=== PATIENT | female | born 1960 | race Caucasian/White ===

== ENCOUNTER 2017-10-01 13:52 | Emergency (ER) | payer BC, OTHER ==
[~2017-10-01] VITALS: Ht 165.1 cm; Wt 107.3 kg
[~2017-10-01 13:52] MED LIST: GLUCTAB PO; LISI-787 PO; LORA-741 PO; MULT-506 PO; SERT25TA PO
[2017-10-01 13:56] VITALS: TEMP 37.4; Ht 165.1 cm; Wt 107.3 kg
[2017-10-01 14:29] VITALS: O2SAT 97
[2017-10-01 14:43] LABS: BASO % 0.6 %; BASO ABS # 0.03 K/uL (0-0.2); EOS % 2.9 %; EOS ABS # 0.15 K/uL (0-0.5); HEMATOCRIT 33.8 % (37-47); HEMOGLOBIN 11.5 g/dL (12.0-16.0); IG# 0.01 K/uL (0.00-0.02); LYMPH % 23.1 %; LYMPH ABS # 1.19 K/uL (1.2-3.4); MEAN CELL VOLUME 88.3 fL (80-100); MEAN PLATELET VOLUME 9.4 fL (7.4-10.4); MONO % 8.2 %; MONO ABS # 0.42 K/uL (0.11-0.59); NEUT ABS # 3.35 K/uL (1.4-6.5); PLATELET COUNT 194 K/uL (130-400); RED CELL DISTRIBUTION WIDTH CV 12.7 % (11.5-14.5); RED CELL DISTRIBUTION WIDTH SD 40.9 fL (36.4-46.3); WHITE BLOOD COUNT 5.15 K/uL (4.8-10.8)
--- NOTE | 2017-10-01 14:47 | EMERGENCY ROOM VISIT NOTE ---
History Report prepared by Cristal: Kevyn Chau Under the Supervision of: Dr. José Miguel Peralta M.D. First contact with patient: 14:15 Chief Complaint: HYPERTENSION Stated Complaint: HIGH BLOOD PRESSURE 185/95 SWELLING LEGS/HANDS History of Present Illness The patient is a 57 year old female who presents to the Emergency Room with complaints of high blood pressure that she noticed on 3 days ago after she saw her legs were swollen bilaterally. She also complains of headache and a tingling sensation in her right fingers that both started yesterday. The headache was relieved with Tylenol, but the swelling has been constant. The patient states she missed two doses of lisinopril due to her prescription running out but other than that she had no changes in her medications. She states she went to [facility] urgent care yesterday. The patient notes she has arthritis and is vitamin B, B12, and iron deficient. The patient denies any abdominal pain, vomiting, nausea, chest pain or shortness of breath. Source of History: patient Onset: 3 days ago Position: other (Generalized) Quality: tingling, other (HTN) Modifying Factors (Relieving): tylenol Associated Symptoms: + headache, No chest pain, No SOB, No nausea, No vomiting, No abdominal pain Review of Systems See HPI for pertinent positives and negatives. A total of ten systems were reviewed and were otherwise negative. Past Medical & Surgical Medical Problems: (1) Hypertension (2) Kidney stones Surgical Problems: (1) H/O: section Family History FH: heart disease FATHER (70's) BROTHER (45) Hypertension FATHER BROTHER Social History Smoking Status: Never Smoker Drug Use: none Marital Status: Occupation Status: employed Current/Historical Medications Scheduled Cholecalciferol (Vitamin D), 1,000 UNITS PO DAILY Cyanocobalamin (Vitamin B-12), 500 MCG PO BID Ergocalciferol (Drisdol), 50,000 UNITS PO WK Ferrous Sulfate (Ferrous Sulfate), 325 MG PO DAILY Lisinopril/Hctz (Zestoretic 20MG/12.5MG), 1 TAB PO DAILY Magnesium Oxide (Mag-Ox), 400 MG PO DAILY Multivitamin (Multivitamin), 1 TAB PO DAILY Scheduled PRN Lorazepam (Ativan), 0.5 MG PO HS PRN for Insomnia Meloxicam (Meloxicam), 15 MG PO UD PRN for Pain Allergies Coded Allergies: Sulfa Drugs (Verified Allergy, Mild, RASH, 10/01/17) Physical Exam Vital Signs Date Time Temp Pulse Resp B/P (MAP) Pulse Ox O2 Delivery O2 Flow Rate FiO2 10/01/17 16:29 79 18 158/94 98 10/01/17 15:36 74 18 175/104 99 Room Air 10/01/17 14:29 97 Room Air 10/01/17 14:20 85 10/01/17 13:56 37.4 82 16 193/85 92 Room Air Physical Exam GENERAL: Awake, alert, well-appearing, in no distress HENT: Normocephalic, atraumatic. Oropharynx unremarkable. EYES: Normal conjunctiva. Sclera non-icteric. NECK: Supple. No nuchal rigidity. RESPIRATORY: Clear to auscultation. No wheezes. Normal respiratory effort. CARDIAC: Normal rate. Normal rhythm. Extremities warm and well perfused. GI: Soft, non-distended. No tenderness to palpation. No rebound or guarding. No masses. RECTAL: Deferred. MUSCULOSKELETAL: Atraumatic. Chest examination reveals no tenderness. There is no CVA tenderness to palpation. LOWER EXTREMITIES: 2+ right lower extremity edema, 1+ left lower extremity edema NEURO: Normal sensorium. No sensory or motor deficits noted. No facial droop. SKIN: Warm and dry. No rash or jaundice noted. Medical Decision & Procedures ER Provider Diagnostic Interpretation: Radiology results as stated below per my review and radiologist interpretation: BILATERAL LOWER EXTREMITY VENOUS DOPPLER HISTORY: Acute swelling of the bilateral lower extremities swelling 4 days R>L COMPARISON STUDY: None. FINDINGS: There is normal compressibility, flow, and augmentation within the bilateral lower extremity deep venous systems. Mildly complex bilateral popliteal cysts, 3.9 x 7.0 x 1.8 cm on the right and 3.4 x 5.1 x 1.7 cm on the left. IMPRESSION: No sonographic evidence of deep venous or pneumatosis within the right or left lower extremity. Electronically signed by: Adis Conte M.D. 10/01/2017 3:29 PM Dictated Date/Time: 10/01/2017 3:28 PM CHEST ONE VIEW PORTABLE HISTORY: 57 years-old Female severe hypertension acute severe hypertension COMPARISON: Chest radiograph and CTA chest 12/08/2012 TECHNIQUE: Portable AP view of the chest FINDINGS: Cardiomediastinal and hilar silhouettes are within normal limits. No pneumothorax, pleural effusion, focal airspace consolidation or overt pulmonary edema. Degenerative changes of the shoulders and spine. IMPRESSION: No acute process. The above report was generated using voice recognition software. It may contain grammatical, syntax or spelling errors. Electronically signed by: Adis Conte M.D. 10/01/2017 2:49 PM Dictated Date/Time: 10/01/2017 2:48 PM Laboratory Results 10/01/17 14:18 Red Blood Count 3.83, Mean Corpuscular Volume 88.3, Mean Corpuscular Hemoglobin 30.0, Mean Corpuscular Hemoglobin Concent 34.0, Mean Platelet Volume 9.4, Neutrophils (%) (Auto) 65.0, Lymphocytes (%) (Auto) 23.1, Monocytes (%) (Auto) 8.2, Eosinophils (%) (Auto) 2.9, Basophils (%) (Auto) 0.6, Neutrophils # (Auto) 3.35, Lymphocytes # (Auto) 1.19, Monocytes # (Auto) 0.42, Eosinophils # (Auto) 0.15, Basophils # (Auto) 0.03 10/01/17 14:18 Test 10/01/17 14:18 White Blood Count 5.15 K/uL (4.8-10.8) Red Blood Count 3.83 M/uL (4.2-5.4) Hemoglobin 11.5 g/dL (12.0-16.0) Hematocrit 33.8 % (37-47) Mean Corpuscular Volume 88.3 fL (80-100) Mean Corpuscular Hemoglobin 30.0 pg (25-34) Mean Corpuscular Hemoglobin Concent 34.0 g/dl (32-36) Platelet Count 194 K/uL (130-400) Mean Platelet Volume 9.4 fL (7.4-10.4) Neutrophils (%) (Auto) 65.0 % Lymphocytes (%) (Auto) 23.1 % Monocytes (%) (Auto) 8.2 % Eosinophils (%) (Auto) 2.9 % Basophils (%) (Auto) 0.6 % Neutrophils # (Auto) 3.35 K/uL (1.4-6.5) Lymphocytes # (Auto) 1.19 K/uL (1.2-3.4) Monocytes # (Auto) 0.42 K/uL (0.11-0.59) Eosinophils # (Auto) 0.15 K/uL (0-0.5) Basophils # (Auto) 0.03 K/uL (0-0.2) RDW Standard Deviation 40.9 fL (36.4-46.3) RDW Coefficient of Variation 12.7 % (11.5-14.5) Immature Granulocyte % (Auto) 0.2 % Immature Granulocyte # (Auto) 0.01 K/uL (0.00-0.02) Anion Gap 10.0 mmol/L (3-11) Est Creatinine Clear Calc Drug Dose 99.2 ml/min Estimated GFR () 99.2 Estimated GFR (Non- 85.6 BUN/Creatinine Ratio 18.9 (10-20) Calcium Level 9.2 mg/dl (8.5-10.1) Total Bilirubin 0.7 mg/dl (0.2-1) Direct Bilirubin 0.1 mg/dl (0-0.2) Aspartate Amino Transf (AST/SGOT) 14 U/L (15-37) Alanine Aminotransferase (ALT/SGPT) 20 U/L (12-78) Alkaline Phosphatase 54 U/L (45-117) Troponin I < 0.015 ng/ml (0-0.045) Pro-B-Type Natriuretic Peptide 681 pg/ml (0-900) Total Protein 7.0 gm/dl (6.4-8.2) Albumin 3.6 gm/dl (3.4-5.0) Lipase 102 U/L (73-393) Thyroid Stimulating Hormone (TSH) 0.264 uIu/ml (0.300-4.500) Laboratory results reviewed by me Medications Administered Medications (Trade) Dose Ordered Sig/Jack Route Start Time Stop Time Status Last Admin Dose Admin HCTZ/Lisinopril (Prinzide 20-12.5MG Tab) 1 tab ONE STAT PO 10/01/17 16:01 10/01/17 16:03 DC 10/01/17 16:24 1 TAB Acetaminophen (Tylenol Tab) 1,000 mg NOW STAT PO 10/01/17 16:01 10/01/17 16:03 DC 10/01/17 16:23 1,000 MG ECG Per My Interpretation Indication: other (Hypertension) Rate (beats per minute): 87 Rhythm: normal sinus Findings: T-wave inversion (Lead 3), no ectopy, other (Normal intervals and axis, No ST elevation) Comparison ECG Date: December 08, 2012 Change: no significant change ED Course 1418: The patient was evaluated in room C5. A complete history and physical exam was performed. 1545: I reevaluated the patient and she is feeling better. 1605: I reevaluated the patient. Discussed results and discharge instructions: She verbalized understanding and agreement. The patient is ready for discharge. Medical Decision Differential diagnosis: Etiologies such as benign hypertension, hypertensive emergency, cardiovascular pathology, pheochromocytoma, electrolyte abnormality, renal disease, endorgan damage, DVT, as well as others were entertained. Patient presents complaining of elevated blood pressure along with some swelling of her lower extremities and face yesterday with a 12 pound weight increase. Denies a history of heart failure. Endorses a history of hypertension and admits to dose of lisinopril earlier in the week but it has been on the last several days. Is also on meloxicam occasionally. Denies a personal history of kidney injury. Well-appearing here. EKG is unchanged. Troponin was sent and negative. Labs without other significant abnormality such as petechiae or electrode imbalance. TSH just below normal. Do not believe this is thyroid storm; she is aware this has been followed as an outpatient. No pretibial edema. Ultrasound lower extremities were completed although the lower suspicion for DVT. This was negative. There are some popliteal cyst notable. Doubt cellulitis here. No evidence of heart failure. Could have a positional component. Doubt PE or dissection and she has no pain here. No shortness of breath either. Benign abdomen. No neurological symptoms. Do not believe this is hypertensive emergency. Monitored here with decrease in blood pressure in discussion with patient given extra dose of lisinopril her home medication today but will ask her to follow-up with her regular doctor to discuss long-term medication changes. May have some mild component of sinus congestion. Discussed return precautions and feel she is stable for follow-up tomorrow with her doctor. Medication Reconcilliation Current Medication List: was personally reviewed by me Blood Pressure Screening Patient's blood pressure: Elevated blood pressure Blood pressure disposition: Referred to PCP Impression Primary Impression: Hypertension Scribe Attestation The scribe's documentation has been prepared under my direction and personally reviewed by me in its entirety. I confirm that the note above accurately reflects all work, treatment, procedures, and medical decision making performed by me. Departure Information Dispostion Home / Self-Care Referrals No Doctor, Assigned (PCP) Forms HOME CARE DOCUMENTATION FORM, IMPORTANT VISIT INFORMATION, WORK / SCHOOL INSTRUCTIONS Patient Instructions [facility] Additional Instructions Continue maintain good hydration. Avoid any caffeine or stimulants. Continue to take your blood pressure medication. Elevate your legs as needed. With follow-up with your regular doctor tomorrow morning to discuss long-term blood pressure management. You may use tylenol as needed. If any time you have chest pain, fevers, abdominal pain, or other concerning symptoms please return here for reevaluation. Problem Qualifiers Primary Impression: Hypertension Hypertension type: essential hypertension Qualified Codes: I10 - Essential ( primary) hypertension
--- NOTE | 2017-10-01 14:50 | DIAGNOSTIC IMAGING REPORT ---
CHEST ONE VIEW PORTABLE HISTORY: 57 years-old Female severe hypertension acute severe hypertension COMPARISON: Chest radiograph and CTA chest 12/08/2012 TECHNIQUE: Portable AP view of the chest FINDINGS: Cardiomediastinal and hilar silhouettes are within normal limits. No pneumothorax, pleural effusion, focal airspace consolidation or overt pulmonary edema. Degenerative changes of the shoulders and spine. IMPRESSION: No acute process. The above report was generated using voice recognition software. It may contain grammatical, syntax or spelling errors. Electronically signed by: Adis Conte M.D. 10/01/2017 2:49 PM Dictated Date/Time: 10/01/2017 2:48 PM
[2017-10-01 15:14] LABS: BLOOD UREA NITROGEN 15 mg/dl (7-18); CREATININE 0.78 mg/dl (0.60-1.20); GLUCOSE 87 mg/dl (70-99)
[2017-10-01 15:15] LABS: ALBUMIN 3.6 gm/dl (3.4-5.0); ALKALINE PHOSPHATASE 54 U/L (45-117); ALT/SGPT 20 U/L (12-78); AST/SGOT 14 U/L (15-37); CALCIUM 9.2 mg/dl (8.5-10.1); CARBON DIOXIDE 25 mmol/L (21-32); LIPASE 102 U/L (73-393); POTASSIUM 4.1 mmol/L (3.5-5.1); SODIUM 143 mmol/L (136-145)
--- NOTE | 2017-10-01 15:31 | DIAGNOSTIC IMAGING REPORT ---
BILATERAL LOWER EXTREMITY VENOUS DOPPLER HISTORY: Acute swelling of the bilateral lower extremities swelling 4 days R>L COMPARISON STUDY: None. FINDINGS: There is normal compressibility, flow, and augmentation within the bilateral lower extremity deep venous systems. Mildly complex bilateral popliteal cysts, 3.9 x 7.0 x 1.8 cm on the right and 3.4 x 5.1 x 1.7 cm on the left. IMPRESSION: No sonographic evidence of deep venous or pneumatosis within the right or left lower extremity. Electronically signed by: Adis Conte M.D. 10/01/2017 3:29 PM Dictated Date/Time: 10/01/2017 3:28 PM
[2017-10-01] MEDS ORDERED: ACETAMINOPHEN 500 MG TAB PO STA (16:01)
[2017-10-01] MEDS ORDERED: LISINOPRIL/HCTZ 20/12.5MG TAB PO STA (16:01)
[2017-10-01] MEDS ORDERED: MAGN400T6 PO (16:08)
[2017-10-01] MEDS ORDERED: FERR1TAB62 PO (16:08)
[2017-10-01] MEDS ORDERED: LORA-741 PO (16:08)
[2017-10-01] MEDS ORDERED: LISI-787 PO (16:08)
[2017-10-01] MEDS ORDERED: CHOL100010 PO (16:08)
[2017-10-01] MEDS ORDERED: [UNRECOGNIZED DRUG - CODE] PO (16:08)
[2017-10-01] MEDS ORDERED: MULT-506 PO (16:08)
[2017-10-01] MEDS ORDERED: MELO-83 PO (16:08)
[2017-10-01] MEDS ORDERED: CYAN500T PO (16:08)
[2017-10-01 16:29] VITALS: BP 158/94; PULSE 79; O2SAT 98
== END 2017-10-01 16:30 | disposition home or self-care (01) ==
LOC: C.EDB 13:54 → C.EDC 16:30
DX: I10 Essential (primary) hypertension (principal); R60.0 Localized edema; R51 Headache; R20.0 Anesthesia of skin; Z79.899 Other long term (current) drug therapy; Z88.2 Allergy status to sulfonamides; Z82.49 Family history of ischemic heart disease and other diseases of the circulatory system